=== PATIENT | male | born 1975 ===

== ENCOUNTER 2016-07-09 22:06 | Emergency (ER) | payer MEDICAID ==
[2016-07-09 22:06] VITALS: BMI 29.8
[2016-07-09 22:13] VITALS: BP 153/87; PULSE 99; RESP 16; TEMP 98.1; O2SAT 100
[2016-07-09] MEDS ORDERED: Iohexol 240 (50 ml) PO ONE (23:06)
--- NOTE | 2016-07-09 23:06 | ED PDOC ---
HPI: Abdomen Time Seen by Provider: 07/09/16 22:31 Chief Complaint (Nursing): Abdominal Pain Chief Complaint (Provider): Abdominal pain History Per: Patient Additional Complaint(s): 40 year old male with a pertinent medical history of diabetes (IDDM) and hypertension presents to the ED with complaints of left side scrotal pain which has persisted for the past 3 weeks. He had recently been diagnosed with cellulitis of the left side of his scrotum (about a month ago) and his urologist performed an IND procedure to drain the fluid. The wound is still open and draining fluid today, but the pain has recently worsened. There's also associated redness in his scrotal area. He denies having swelling, a fever, abdominal pain, vomiting, and nausea. PMD: [place] MD Past Medical History Vital Signs: Last Vital Signs Temp 98.1 F 07/09/16 22:10 Pulse 99 H 07/09/16 22:10 Resp 16 07/09/16 22:10 BP 153/87 H 07/09/16 22:10 Pulse Ox 100 07/10/16 03:50 - Medical History PMH: Bronchitis, Diabetes (IDDM), HTN, Pneumonia, Pulmonary Embolism Denies: HIV, Paranoia, Chronic Kidney Disease - Surgical History Surgical History: Appendectomy, Hernia Repair - Family History Family History: States: Unknown Family Hx - Immunization History Hx Tetanus Toxoid Vaccination: Yes Hx Influenza Vaccination: No Hx Pneumococcal Vaccination: Yes - Home Medications Home Medications: Ambulatory Orders Medication Instructions Recorded MetFORMIN [glucoPHAGE] 1,000 mg PO BID #0 tab 10/03/15 Lisinopril [Zestril] 20 mg PO DAILY 06/12/16 Ibuprofen [Motrin Tab] 400 mg PO Q6 PRN #0 tab 06/17/16 Ketoconazole 2% Cr [Nizoral] 1 applic TOP BID #1 tube 06/17/16 Pioglitazone [Actos] 30 mg PO DAILY #30 tab 06/17/16 SITagliptin [Januvia] 100 mg PO DAILY #30 tab 06/17/16 traMADol [Ultram] 50 mg PO Q8 PRN #12 tab 06/30/16 Dicyclomine [Bentyl] 10 mg PO QID #10 cap 07/10/16 - Allergies Allergies/Adverse Reactions: Allergies Allergy/AdvReac Type Severity Reaction Status Date / Time metoclopramide HCl Allergy RASH Verified 05/28/16 21:28 [From Reglan] ondansetron HCl Allergy RASH Verified 05/28/16 21:28 [From Zofran (as hydrochloride)] onion AdvReac VOMITING Verified 06/12/16 15:24 - Laboratory Results Result Diagrams: 07/09/16 23:30 07/09/16 23:30 - ECG O2 Sat by Pulse Oximetry: 100 Medical Decision Making Medical Decision Making: labs, urine, CT abd/pelvis with IV contrast, IV fluids, IV morphine Case was discussed with Dr. Lake, patient's PMD, who recommends if ED work up normal patient to be discharged to follow up with urology as outpatient. EXAM: CT Abdomen and Pelvis With Intravenous Contrast. CLINICAL HISTORY: 41 years old, male; Pain; Abdominal pain; Localized; Left; Prior surgery; Surgery date: 6+ months; Surgery type: Appendectomy; Additional info: Left lower abd pain, left scrotal pain TECHNIQUE: Axial computed tomography images of the abdomen and pelvis with intravenous contrast. This CT exam was performed using one or more of the following dose reduction techniques : automated exposure control, adjustment of the mA and/or kV according to patient size, and/ or use of iterative reconstruction technique. Coronal and sagittal reformatted images were created and reviewed. CONTRAST: 95 mL of [id number] administered intravenously. EXAM DATE/TIME: 06/29/2016 11:51 PM COMPARISON: CT - PELVIS W/IV CONTRAST ONLY 06/12/2016 5:56:28 AM FINDINGS: There is bibasilar atelectasis. The liver is normal. The spleen is normal. The pancreas is normal. No gallstones. No hydronephrosis or perinephric stranding. The bowel appears normal. Status post appendectomy. There is a 2.2 centimeter fluid collection in the anterior inferior right pelvis unchanged. Again seen is abnormal soft tissue density in the left perianal region. There has been placement of a hyperdense, somewhat tubular structure since the prior study of uncertain etiology. Recommend correlation with history of recent procedure. There is no drainable fluid collection. The two main diagnostic possibilities would be infectious/inflammatory etiology versus neoplastic etiology. Again seen are 2 rounded hyperdensities along the left lateral aspect of the penis unchanged. IMPRESSION: Abnormal soft tissue density in the left perianal region similar to prior although now containing irregular hyperdense structure, presumably the patient has undergone interventional procedure in the interim.The two main diagnostic possibilities would be infectious/inflammatory etiology versus neoplastic etiology. Clinical correlation with regard to signs/symptoms of infectious process as well as followup is recommended On re-eval, patient resting comfortably; states pain improved. Patient was educated on findings, discharged with instructions to follow up with Dr. Manley at scheduled appointment tomorrow. Patient advised to continue Clindamycin. Rx Tramadol given. Return to ED for worsening/concerning symptoms. US IMPRESSION: 1. No sonographic evidence of testicular torsion. 2. Incidental/non-acute findings are described above Disposition - Clinical Impression Clinical Impression: Abdominal discomfort, Cellulitis of scrotum - Disposition Condition: GOOD Prescriptions: Dicyclomine [Bentyl] 10 mg PO QID #10 cap Instructions: Cellulitis (ED), Acute Diarrhea (ED), Acute Abdominal Pain (ED)
[2016-07-09] MEDS ORDERED: DiphenhydrAMINE 50 mg/ml Inj IVP STA (23:09)
[2016-07-10 00:06] LABS: BASO % 0.5 % (0.0-2.0); EOS # 0.2 K/uL (0.0-0.7); EOS % 3.7 % (0.0-4.0); HEMATOCRIT 39.8 % (35.0-51.0); LYMPH # 1.4 K/uL (1.0-4.3); LYMPH % 20.9 % (20.0-40.0); MEAN CELL VOLUME 91.1 fl (80.0-94.0); MEAN CORPUSCULAR HEMOGLOBIN 31.4 pg (27.0-31.0); MEAN CORPUSCULAR HGB CONC 34.4 g/dL (33.0-37.0); MEAN PLATELET VOLUME 8.2 fl (7.2-11.7); MONO # 0.8 K/uL (0.0-0.8); MONO % 11.7 % (0.0-10.0); NEUT # 4.2 K/uL (1.8-7.0); NEUT % 63.2 % (50.0-75.0); NRBC % 0.1 % (0.0-0.0); RED CELL DISTRIBUTION WIDTH 12.6 % (11.5-14.5); WHITE BLOOD COUNT 6.6 K/uL (4.8-10.8)
[2016-07-10 00:24] LABS: ALB/GLOB RATIO 1.2 (1.0-2.1); ALKALINE PHOSPHATASE 110 U/L (38-126); ALT/SGPT 34 U/L (21-72); AST/SGOT 22 U/L (17-59); BILIRUBIN,TOTAL 0.3 mg/dl (0.2-1.3); BLOOD UREA NITROGEN 16 mg/dl (9-20); CALCIUM 9.4 mg/dL (8.4-10.2); CARBON DIOXIDE 22 mmol/L (22-30); CHLORIDE 104 mmol/L (98-107); GFR AFRICAN-AMERICAN > 60; GLUCOSE,RANDOM 236 mg/dL (75-110); LIPASE 49 U/L (23-300); SODIUM 136 mmol/l (132-148); TOTAL PROTEIN 7.6 G/DL (6.3-8.2)
[2016-07-10 00:54] LABS: RBC URINE 3 /hpf (0-3); URINE BACTERIA RARE (<OCC); URINE BILIRUBIN NEGATIVE (NEGATIVE); URINE BLOOD NEGATIVE (NEGATIVE); URINE COLOR YELLOW (YELLOW); URINE GLUCOSE (UA) >=500 mg/dL (Normal); URINE KETONE TRACE mg/dL (NEGATIVE); URINE LEUKOCYTE ESTERASE NEG Leu/uL (Negative); URINE PROTEIN NEGATIVE (NEGATIVE); URINE UROBILINOGEN 0.2-1.0 mg/dL (0.2-1.0); WBC URINE < 1 /hpf (0-5)
--- NOTE | 2016-07-10 02:07 | US ---
EXAM: US Scrotum. CLINICAL HISTORY: 41 years old, male; Pain; Scrotum pain; Prior surgery; Surgery date: 6+ months; Surgery type: As per pt lt testile surgery long time ago; Additional info: Left testicular pain and swelling TECHNIQUE: Real-time ultrasound of the scrotum with color Doppler and image documentation. COMPARISON: No relevant prior studies available. FINDINGS: Limitations: Patient compliance as per technologist. Right testicle: No mass. No torsion. Left testicle: No mass. No torsion. Epididymides: Unremarkable as visualized. Scrotum: Possible small LEFT varicocele. IMPRESSION: 1. No sonographic evidence of testicular torsion. 2. Incidental/non-acute findings are described above.
--- NOTE | 2016-07-10 08:21 | RAD ---
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 No new focal alveolar infiltrate is seen. Trachea is midline. PLEURA: No pneumothorax or pleural fluid seen. CARDIOVASCULAR: Normal. OSSEOUS STRUCTURES: No significant abnormalities. VISUALIZED UPPER ABDOMEN: Normal. OTHER FINDINGS: None. IMPRESSION: No focal infiltrate. No vascular congestion or pneumothorax.
--- NOTE | 2016-07-11 09:38 | CARD ---
APPROVED REPORT EKG Measurement Heart [id number] <Conclusion> Normal sinus rhythm Normal ECG
== END 2016-07-10 06:32 | disposition home or self-care (01) ==
LOC: H.ER 22:06
DX: R10.9 Unspecified abdominal pain (principal); N49.2 Inflammatory disorders of scrotum; I10 Essential (primary) hypertension; E11.9 Type 2 diabetes mellitus without complications

== ENCOUNTER 2016-10-11 01:00 | Emergency (ER) | payer MEDICAID ==
[2016-10-11 01:00] VITALS: BMI 29.8
[2016-10-11 01:53] VITALS: BP 155/87; PULSE 111; RESP 16; TEMP 98.1; O2SAT 98
[2016-10-11] MEDS ORDERED: Sodium Chloride 0.9% 1,000 ML IV STA (02:12)
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
[2016-10-11 02:53] LABS: BASO # 0.1 K/uL (0.0-0.2); BASO % 0.9 % (0.0-2.0); EOS # 0.4 K/uL (0.0-0.7); EOS % 6.1 % (0.0-4.0); HEMATOCRIT 43.2 % (35.0-51.0); LYMPH # 1.7 K/uL (1.0-4.3); LYMPH % 24.7 % (20.0-40.0); MEAN CELL VOLUME 91.3 fl (80.0-94.0); MEAN CORPUSCULAR HEMOGLOBIN 30.9 pg (27.0-31.0); MEAN CORPUSCULAR HGB CONC 33.8 g/dL (33.0-37.0); MEAN PLATELET VOLUME 7.2 fl (7.2-11.7); MONO # 1.1 K/uL (0.0-0.8); NEUT # 3.6 K/uL (1.8-7.0); NEUT % 52.3 % (50.0-75.0); RED CELL DISTRIBUTION WIDTH 12.7 % (11.5-14.5); WHITE BLOOD COUNT 6.8 K/uL (4.8-10.8)
[2016-10-11 03:07] LABS: ALB/GLOB RATIO 1.3 (1.0-2.1); ALKALINE PHOSPHATASE 114 U/L (38-126); ALT/SGPT 33 U/L (21-72); AST/SGOT 22 U/L (17-59); BILIRUBIN,TOTAL 0.2 mg/dl (0.2-1.3); BLOOD UREA NITROGEN 10 mg/dl (9-20); CALCIUM 9.7 mg/dL (8.4-10.2); CARBON DIOXIDE 25 mmol/L (22-30); CHLORIDE 101 mmol/L (98-107); GFR AFRICAN-AMERICAN > 60; GLUCOSE,RANDOM 337 mg/dL (75-110); LIPASE 29 U/L (23-300); POTASSIUM 3.9 MMOL/L (3.6-5.0); SODIUM 140 mmol/l (132-148); TOTAL PROTEIN 7.7 G/DL (6.3-8.2)
[2016-10-11 03:21] LABS: RBC URINE 4 /hpf (0-3); URINE BILIRUBIN NEGATIVE (NEGATIVE); URINE BLOOD NEGATIVE (NEGATIVE); URINE COLOR YELLOW (YELLOW); URINE GLUCOSE (UA) >=500 mg/dL (Normal); URINE KETONE NEGATIVE (NEGATIVE); URINE LEUKOCYTE ESTERASE NEG Leu/uL (Negative); URINE PROTEIN NEGATIVE (NEGATIVE); URINE UROBILINOGEN 0.2-1.0 mg/dL (0.2-1.0); WBC URINE < 1 /hpf (0-5)
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
== END 2016-10-11 05:00 | disposition home or self-care (01) ==
LOC: H.ER 01:00
DX: K52.9 Noninfective gastroenteritis and colitis, unspecified (principal); M54.9 Dorsalgia, unspecified; R11.2 Nausea with vomiting, unspecified; R19.7 Diarrhea, unspecified

== ENCOUNTER 2017-04-02 22:42 | Emergency (ER) | payer MEDICAID ==
[2017-04-02 22:43] VITALS: BMI 29.8
[2017-04-02 22:49] VITALS: RESP 16; TEMP 98.1
[2017-04-02] MEDS ORDERED: Iohexol 240 (50 ml) PO ONE (23:05)
[2017-04-02] MEDS ORDERED: Sodium Chloride 0.9% 1,000 ML IV STA (23:06)
[2017-04-02] MEDS ORDERED: Iohexol 240 (50 ml) ONE (23:38)
--- NOTE | 2017-04-02 23:38 | ED PDOC ---
HPI: Abdomen Time Seen by Provider: 04/02/17 22:50 Chief Complaint (Nursing): Abdominal Pain Chief Complaint (Provider): Abdominal Pain History Per: Patient History/Exam Limitations: no limitations Onset/Duration Of Symptoms: Days (x6) Current Symptoms Are (Timing): Still Present Location Of Pain/Discomfort: Diffuse Associated Symptoms: Nausea, Vomiting, Diarrhea, Constipation. denies: Fever Additional Complaint(s): 41 year old male presents to ED with complaints of diffuse abdominal pain x6 days and has a past medical history of HTN, DM (type II), and scrotal abscess. ( +) left flank pain, nausea, vomiting, and alternating diarrhea/constipation. Notes diarrhea is watery, brown, and non-bloody and emesis is non-bloody and non -bilious. Denies vomiting today but notes presence of nausea. (-) fever. PCP: [facility] Past Medical History Reviewed: Historical Data, Nursing Documentation, Vital Signs Vital Signs: Last Vital Signs Temp 98.1 F 04/02/17 22:46 Pulse 84 04/03/17 03:05 Resp 16 04/03/17 03:05 BP 134/86 04/03/17 03:05 Pulse Ox 96 04/03/17 03:05 - Medical History PMH: Bronchitis, Diabetes (IDDM), HTN, Pneumonia, Pulmonary Embolism Denies: HIV, Chronic Kidney Disease - Surgical History Surgical History: Appendectomy, Hernia Repair - Family History Family History: States: Unknown Family Hx - Immunization History Hx Tetanus Toxoid Vaccination: Yes Hx Influenza Vaccination: Yes Hx Pneumococcal Vaccination: Yes - Home Medications Home Medications: Ambulatory Orders Medication Instructions Recorded MetFORMIN [glucoPHAGE] 1,000 mg PO BID #0 tab 10/03/15 Lisinopril [Zestril] 20 mg PO DAILY 06/12/16 Ibuprofen [Motrin Tab] 400 mg PO Q6 PRN #0 tab 06/17/16 Ketoconazole 2% Cr [Nizoral] 1 applic TOP BID #1 tube 06/17/16 SITagliptin [Januvia] 100 mg PO DAILY #30 tab 06/17/16 Dicyclomine [Bentyl] 10 mg PO QID #10 cap 07/10/16 Atropine/Diphenoxylate [Lonox 1 tab PO QID PRN #8 tab 07/17/16 0.025 MG-2.5 MG] Cyclobenzaprine [Cyclobenzaprine 10 mg PO BID PRN #10 tab 10/11/16 HCl] Dicyclomine [Bentyl] 20 mg PO TID #21 tab 10/11/16 Famotidine [Pepcid] 20 mg PO BID #20 tab 10/11/16 Naproxen [Naprosyn] 500 mg PO Q12 PRN #20 tablet 10/11/16 Dicyclomine [Dicyclomine HCl] 10 mg PO QID #30 cap 04/03/17 DiphenhydrAMINE [Benadryl] 25 mg PO Q8 #20 cap 04/03/17 Promethazine [Phenergan] 12.5 mg PO Q8 #15 tab 04/03/17 - Allergies Allergies/Adverse Reactions: Allergies Allergy/AdvReac Type Severity Reaction Status Date / Time metoclopramide HCl Allergy RASH Verified 04/02/17 22:46 [From Reglan] ondansetron HCl Allergy RASH Verified 04/02/17 22:46 [From Zofran (as hydrochloride)] onion AdvReac VOMITING Verified 04/02/17 22:46 Review of Systems ROS Statement: Except As Marked, All Systems Reviewed And Found Negative Constitutional: Negative for: Fever Gastrointestinal: Positive for: Nausea, Vomiting, Abdominal Pain (diffuse and left flank), Diarrhea, Constipation Physical Exam - Reviewed Nursing Documentation Reviewed: Yes Vital Signs Reviewed: Yes - Physical Exam Appears: Positive for: Non-toxic, No Acute Distress (disheveled) Skin: Positive for: Normal Color, Warm, Dry Eye Exam: Negative for: Normal appearance (cateract in left eye) Respiratory: Positive for: Normal Breath Sounds. Negative for: Respiratory Distress Gastrointestinal/Abdominal: Positive for: Soft, Tenderness (diffuse, greater on right side of abdomen than left. (+)Left flank tenderness ), Other (multiple surgical scars) Back: Positive for: Normal Inspection Extremity: Positive for: Normal ROM. Negative for: Deformity Neurologic/Psych: Positive for: Alert, Oriented - Laboratory Results Result Diagrams: 04/02/17 23:38 04/02/17 23:38 - ECG O2 Sat by Pulse Oximetry: 99 (RA) Pulse Ox Interpretation: Normal Medical Decision Making Medical Decision Makin Initial impression: colitis v diverticulitis v pyelonephritis v obstruction Initial plan: * CTA A/P * Labs * Lipase * NS IV * Iohexol 50mL PO * Phenergan Inj 125mg IV * BCx * UCx * UA * Re-eval 0158 CT FINDINGS Lower thorax: No acute findings. ABDOMEN: Liver: Unremarkable. No mass. Gallbladder and bile ducts: No calcified stones. No ductal dilation. Pancreas: No ductal dilation. No mass. Spleen: No splenomegaly. Adrenals: No mass. Kidneys and ureters: No mass. No hydronephrosis. Stomach and bowel: No definite mural thickening. No obstruction. Appendix: Appendectomy. PELVIS: Bladder: Unremarkable. Reproductive: Unremarkable as visualized. ABDOMEN and PELVIS: Intraperitoneal space: Small fluid collection within RIGHT anterior pelvis about region, stable. No free air. Bones/joints: No acute fracture. Soft tissues: Unremarkable. Vasculature: Minimal atherosclerotic disease. No aneurysm. Lymph nodes: No pathologically enlarged lymph nodes. IMPRESSION: 1. No definite acute intraabdominal abnormality. 2. Incidental/non-acute findings are described above. 2am pt. feeling better, tolerating po. told to f/u w/ angel and gi as needed. return precautions discussed. Scribe Attestation: Documented by Antonette Gallegos acting as a scribe for Brooks Ocasio MD. Scribe Attestation: All medical record entries made by the Scribe were at my direction and personally dictated by me. I have reviewed the chart and agree that the record accurately reflects my personal performance of the history, physical exam, medical decision making, and the department course for this patient. I have also personally directed, reviewed, and agree with the discharge instructions and disposition. Disposition - Clinical Impression Clinical Impression: Abdominal pain - Disposition Referrals: [place] MD [Family Provider] - Felipe Chu MD, PhD [Staff Provider] - Disposition Time: 02:30 Condition: STABLE Prescriptions: Dicyclomine [Dicyclomine HCl] 10 mg PO QID #30 cap DiphenhydrAMINE [Benadryl] 25 mg PO Q8 #20 cap Promethazine [Phenergan] 12.5 mg PO Q8 #15 tab Instructions: Acute Abdominal Pain (DC) Forms: [employer] ([employer])
[2017-04-02 23:41] LABS: BASO % 0.6 % (0.0-2.0); EOS # 0.4 K/uL (0.0-0.7); HEMATOCRIT 43.3 % (35.0-51.0); LYMPH # 1.4 K/uL (1.0-4.3); LYMPH % 19.1 % (20.0-40.0); MEAN CELL VOLUME 93.7 fl (80.0-94.0); MEAN CORPUSCULAR HEMOGLOBIN 31.9 pg (27.0-31.0); MEAN CORPUSCULAR HGB CONC 34.1 g/dL (33.0-37.0); MEAN PLATELET VOLUME 7.6 fl (7.2-11.7); MONO # 0.9 K/uL (0.0-0.8); MONO % 11.9 % (0.0-10.0); NEUT # 4.8 K/uL (1.8-7.0); NEUT % 63.4 % (50.0-75.0); RED CELL DISTRIBUTION WIDTH 12.2 % (11.5-14.5); WHITE BLOOD COUNT 7.6 K/uL (4.8-10.8)
[2017-04-02 23:53] LABS: ALB/GLOB RATIO 1.3 (1.0-2.1); ALKALINE PHOSPHATASE 103 U/L (38-126); ALT/SGPT 44 U/L (21-72); AST/SGOT 24 U/L (17-59); BILIRUBIN,TOTAL 0.4 mg/dl (0.2-1.3); BLOOD UREA NITROGEN 12 mg/dl (9-20); CALCIUM 9.1 mg/dL (8.4-10.2); CARBON DIOXIDE 23 mmol/L (22-30); CHLORIDE 102 mmol/L (98-107); GFR AFRICAN-AMERICAN > 60; GLUCOSE,RANDOM 369 mg/dL (75-110); LIPASE 54 U/L (23-300); SODIUM 138 mmol/l (132-148); TOTAL PROTEIN 7.5 G/DL (6.3-8.2)
[2017-04-03 00:38] LABS: RBC URINE 1 /hpf (0-3); URINE BACTERIA RARE (<OCC); URINE BILIRUBIN NEGATIVE (NEGATIVE); URINE BLOOD NEGATIVE (NEGATIVE); URINE COLOR STRAW (YELLOW); URINE GLUCOSE (UA) >=500 mg/dL (Normal); URINE KETONE NEGATIVE (NEGATIVE); URINE LEUKOCYTE ESTERASE NEG Leu/uL (Negative); URINE PROTEIN 30 mg/dL (NEGATIVE); URINE UROBILINOGEN 0.2-1.0 mg/dL (0.2-1.0)
[2017-04-03] MEDS ORDERED: Iohexol 300 100 ML IJ ONE (01:11)
--- NOTE | 2017-04-03 01:58 | CT ---
EXAM: CT Abdomen and Pelvis With Intravenous Contrast CLINICAL HISTORY: 41 years old, male; Pain; Abdominal pain; Generalized; Prior surgery; Surgery date: 6+ months; Surgery type: Appendectomy. Hernia repair; Additional info: Diffuse abd pain and l flank pain, vomiting TECHNIQUE: Axial computed tomography images of the abdomen and pelvis with intravenous contrast. All CT scans at this facility use one or more dose reduction techniques, viz.: automated exposure control; ma/kV adjustment per patient size (including targeted exams where dose is matched to indication; i.e. head); or iterative reconstruction technique. Coronal and sagittal reformatted images were created and reviewed. CONTRAST: 95 mL of [id number] administered intravenously. COMPARISON: CT - ABD PELVIS IV CONTRAST ONLY 2016-06-30 01:35 FINDINGS: Lower thorax: No acute findings. ABDOMEN: Liver: Unremarkable. No mass. Gallbladder and bile ducts: No calcified stones. No ductal dilation. Pancreas: No ductal dilation. No mass. Spleen: No splenomegaly. Adrenals: No mass. Kidneys and ureters: No mass. No hydronephrosis. Stomach and bowel: No definite mural thickening. No obstruction. Appendix: Appendectomy. PELVIS: Bladder: Unremarkable. Reproductive: Unremarkable as visualized. ABDOMEN and PELVIS: Intraperitoneal space: Small fluid collection within RIGHT anterior pelvis about region, stable. No free air. Bones/joints: No acute fracture. Soft tissues: Unremarkable. Vasculature: Minimal atherosclerotic disease. No aneurysm. Lymph nodes: No pathologically enlarged lymph nodes. IMPRESSION: 1. No definite acute intraabdominal abnormality. 2. Incidental/non-acute findings are described above.
[2017-04-03 03:23] VITALS: BP 134/86; PULSE 84
[2017-04-03 07:01] VITALS: O2SAT 99
== END 2017-04-03 03:24 | disposition home or self-care (01) ==
LOC: H.ER 22:42
DX: R10.9 Unspecified abdominal pain (principal); E11.9 Type 2 diabetes mellitus without complications; I10 Essential (primary) hypertension; K52.9 Noninfective gastroenteritis and colitis, unspecified; K57.92 Diverticulitis of intestine, part unspecified, without perforation or abscess without bleeding; N12 Tubulo-interstitial nephritis, not specified as acute or chronic; Z79.4 Long term (current) use of insulin; Z86.711 Personal history of pulmonary embolism
CPT/HCPCS: 74177; 80053; 81003; 82948; 83690; 85025; 87040; 87086; 96374; 99283; J2550; J7040; Q9966; Q9967

== ENCOUNTER 2017-05-26 22:27 | Emergency (ER) | payer MEDICAID ==
[2017-05-26 22:27] VITALS: BMI 29.8
--- NOTE | 2017-05-27 01:58 | ED PDOC ---
HPI: Abdomen Time Seen by Provider: 05/27/17 01:18 Chief Complaint (Nursing): Abdominal Pain Chief Complaint (Provider): Abdominal Pain/Vomiting History Per: Patient History/Exam Limitations: no limitations Onset/Duration Of Symptoms: Days (x4) Outside of [place] travel?: No Current Symptoms Are (Timing): Still Present Additional Complaint(s): Darell Downs is a 41 year old male with a history of diabetes and hypertension that presents to the ED with a chief complaint of coffee ground emesis, productive cough associated with dark colored phlegm, epigastric abdominal pain , and watery, non-bloody, non-black diarrhea that he has been experiencing for the past four days. Patient reports that he was "on a train from [place] to [place]" for the past four days, and that he placed his diabetes and hypertension medication in a bag that he could not access during the trip. Patient additionally reports a knot-like feeling within his chest. After reviewing patient's past history, he has presented to ED multiple times for similar complaints. Of Note: Patient has a history of a bleeding ulcer, as well as a blood clot in his lungs. Denies IVC filter. PMD: Dr. Lake Past Medical History Reviewed: Historical Data, Nursing Documentation, Vital Signs Vital Signs: Last Vital Signs Temp 98.7 F 05/26/17 22:48 Pulse 98 H 05/26/17 22:48 Resp 18 05/26/17 22:48 BP 166/90 H 05/26/17 22:48 Pulse Ox 99 05/27/17 05:34 - Medical History PMH: Bronchitis, Diabetes (IDDM), HTN, Pneumonia, Pulmonary Embolism Denies: HIV, Chronic Kidney Disease - Surgical History Surgical History: Appendectomy, Hernia Repair - Family History Family History: States: Unknown Family Hx - Social History Current smoker - smoking cessation education provided: Yes Alcohol: None Drugs: Denies - Immunization History Hx Tetanus Toxoid Vaccination: Yes Hx Influenza Vaccination: Yes Hx Pneumococcal Vaccination: Yes - Home Medications Home Medications: Ambulatory Orders Medication Instructions Recorded Lisinopril [Zestril] 20 mg PO DAILY 06/12/16 Ibuprofen [Motrin Tab] 400 mg PO Q6 PRN #0 tab 06/17/16 Ketoconazole 2% Cr [Nizoral] 1 applic TOP BID #1 tube 06/17/16 Dicyclomine [Bentyl] 10 mg PO QID #10 cap 07/10/16 Atropine/Diphenoxylate [Lonox 1 tab PO QID PRN #8 tab 07/17/16 0.025 MG-2.5 MG] Cyclobenzaprine [Cyclobenzaprine 10 mg PO BID PRN #10 tab 10/11/16 HCl] Dicyclomine [Bentyl] 20 mg PO TID #21 tab 10/11/16 Famotidine [Pepcid] 20 mg PO BID #20 tab 10/11/16 Naproxen [Naprosyn] 500 mg PO Q12 PRN #20 tablet 10/11/16 DiphenhydrAMINE [Benadryl] 25 mg PO Q8 #20 cap 04/03/17 Promethazine [Phenergan] 12.5 mg PO Q8 #15 tab 04/03/17 Dicyclomine [Dicyclomine HCl] 10 mg PO QID #30 cap 05/27/17 MetFORMIN [glucoPHAGE] 1,000 mg PO BID #60 tab 05/27/17 Ondansetron ODT [Zofran ODT] 4 mg PO Q8 PRN #12 odt 05/27/17 SITagliptin [Januvia] 100 mg PO DAILY #30 tab 05/27/17 - Allergies Allergies/Adverse Reactions: Allergies Allergy/AdvReac Type Severity Reaction Status Date / Time metoclopramide HCl Allergy RASH Verified 04/02/17 22:46 [From Reglan] ondansetron HCl Allergy RASH Verified 04/02/17 22:46 [From Zofran (as hydrochloride)] onion AdvReac VOMITING Verified 04/02/17 22:46 Review of Systems ROS Statement: Except As Marked, All Systems Reviewed And Found Negative Constitutional: Negative for: Fever Cardiovascular: Positive for: Chest Pain ("knot-like feeling" in his chest) Gastrointestinal: Positive for: Vomiting (coffee-ground emesis), Abdominal Pain (epigastric), Diarrhea (watery, non-bloody, non-black) Physical Exam - Reviewed Nursing Documentation Reviewed: Yes Vital Signs Reviewed: Yes - Physical Exam Appears: Positive for: Non-toxic, No Acute Distress (Patient is disheveled) Head Exam: Positive for: ATRAUMATIC, NORMOCEPHALIC Skin: Positive for: Normal Color, Warm Eye Exam: Positive for: EOMI (only right eye), PERRL (only right eye). 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 Negative for: Murmur Respiratory: Positive for: Normal Breath Sounds. Negative for: Wheezing Gastrointestinal/Abdominal: Positive for: Tenderness (Diffuse TTP), Other (Scar present on lower abdomen from previous surgery). Negative for: Normal Exam, Distended, Guarding Back: Positive for: Normal Inspection Extremity: Positive for: Normal ROM. Negative for: Deformity Neurologic/Psych: Positive for: Alert, Oriented. Negative for: Motor/Sensory Deficits - Laboratory Results Result Diagrams: 05/27/17 02:10 05/27/17 02:10 - ECG O2 Sat by Pulse Oximetry: 99 (RA) Pulse Ox Interpretation: Normal - Radiology X-Ray: Interpreted by Me Medical Decision Making Medical Decision Making: Impression: Abdominal Pain, Coffee Ground Emesis, and Chest Pain, ddx include ACS (for chest pain) and Upper GI bleed vs. Peptic Ulcer Disease vs. Other Abdominal pathologies (for abdominal pain) Plan: * CT Abd/Pelvis with PO and IV Contrast * Chest X-Ray * EKG * CMP * CBC * PTT * PT * Lipase * Type and Screen * Alcohol Serum * Accucheck * Reevaluation CT Abdomen and Pelvis with PO and IV Contrast FINDINGS: Lower thorax: No acute findings. ABDOMEN: Liver: Unremarkable. No mass. Gallbladder and bile ducts: The gallbladder is contracted but otherwise normal. No calcified stones. No ductal dilation. Pancreas: Unremarkable. No mass. No ductal dilation. Spleen: Unremarkable. No splenomegaly. Adrenals: Unremarkable. No mass. Kidneys and ureters: Unremarkable. No solid mass. No hydronephrosis. Stomach and bowel: Unremarkable. No obstruction. No mucosal thickening.There is no wall thickening or pericolonic stranding to suggest colitis. Appendix: Not visualized. History of appendectomy. PELVIS: Bladder: Unremarkable. No mass. Reproductive: Unremarkable as visualized. ABDOMEN and PELVIS: Intraperitoneal space: Unremarkable. No free air. No significant fluid collection. Bones/joints: No acute fracture. No dislocation. Soft tissues: Unremarkable. Vasculature: The vasculature demonstrates diffuse mild atherosclerotic calcification. No abdominal aortic aneurysm. Lymph nodes: Unremarkable. No enlarged lymph nodes. IMPRESSION: No acute intra-abdominal or pelvic abnormality Chest X-Ray Interpreted by me, no acute findings. 5:23 Patient has been sleeping throughout ED visit. He has not vomited in ED and has not been given pain medication. Labs unremarkable with the exception of mild hyperglycemia of 275 mg/dL, which is to be expected as patient has a history of diabetes. 5:30 EKG shows NSR at 70 BPM, normal QRS, and no ST changes. Patient given Rx for Metformin, Zofran, Dicyclomine, and Januvia. Advised to follow up with PMD in 2 days. Patient is stable for discharge home. Scribe Attestation: Documented by Gena Arzate, acting as a scribe for Jeffrey Saha MD. Provider Scribe Attestation: All medical record entries made by the Scribe were at my direction and personally dictated by me. I have reviewed the chart and agree that the record accurately reflects my personal performance of the history, physical exam, medical decision making, and the department course for this patient. I have also personally directed, reviewed, and agree with the discharge instructions and disposition. Disposition - Clinical Impression Clinical Impression: Vomiting and diarrhea, Abdominal pain, Cough, Chest pain - Patient ED Disposition Is Patient to be Admitted: No Doctor Will See Patient In The: Office Counseled Patient/Family Regarding: Studies Performed, Diagnosis, Need For Followup - Disposition Referrals: Michoacano Lake MD [Staff Provider] - Disposition: Routine/Home Disposition Time: 05:30 Condition: GOOD Additional Instructions: Take your medications as instructed. Follow up with your PCP in 2 days. Prescriptions: Dicyclomine [Dicyclomine HCl] 10 mg PO QID #30 cap MetFORMIN [glucoPHAGE] 1,000 mg PO BID #60 tab Ondansetron ODT [Zofran ODT] 4 mg PO Q8 PRN #12 odt PRN Reason: Nausea/Vomiting SITagliptin [Januvia] 100 mg PO DAILY #30 tab Instructions: Chest Pain (ED), Abdominal Pain (ED), Diabetic Hyperglycemia (ED)
[2017-05-27] MEDS ORDERED: Iohexol 240 (50 ml) PO ONE (02:25)
[2017-05-27 02:26] LABS: BASO % 0.6 % (0.0-2.0); EOS # 0.4 K/uL (0.0-0.7); EOS % 5.5 % (0.0-4.0); HEMOGLOBIN 14.1 g/dL (12.0-18.0); LYMPH # 1.8 K/uL (1.0-4.3); LYMPH % 26.1 % (20.0-40.0); MEAN CELL VOLUME 91.3 fl (80.0-94.0); MEAN CORPUSCULAR HEMOGLOBIN 32.5 pg (27.0-31.0); MEAN CORPUSCULAR HGB CONC 35.5 g/dL (33.0-37.0); MEAN PLATELET VOLUME 7.3 fl (7.2-11.7); MONO % 14.2 % (0.0-10.0); NEUT # 3.7 K/uL (1.8-7.0); NEUT % 53.6 % (50.0-75.0); NRBC % 0.1 % (0.0-0.0); RBC 4.36 Mil/uL (4.40-5.90); RED CELL DISTRIBUTION WIDTH 12.2 % (11.5-14.5); WHITE BLOOD COUNT 6.9 K/uL (4.8-10.8)
[2017-05-27] MEDS ORDERED: Iohexol 240 (50 ml) ONE (02:38)
[2017-05-27 02:45] LABS: ALB/GLOB RATIO 1.1 (1.0-2.1); ALT/SGPT 38 U/L (21-72); AST/SGOT 25 U/L (17-59); BLOOD UREA NITROGEN 7 mg/dl (9-20); CALCIUM 9.6 mg/dL (8.4-10.2); GFR AFRICAN-AMERICAN > 60; GFR NON-AFRICAN AMERICAN > 60; LIPASE 32 U/L (23-300)
[2017-05-27 02:49] LABS: PROTHROMBIN TIME 10.5 Seconds (9.8-13.1)
[2017-05-27] MEDS ORDERED: Promethazine 6.25 MG/5 ML CUP ONE (02:52)
[2017-05-27 03:35] LABS: BARBITURATES, UR NEGATIVE (NEGATIVE); BENZODIAZEPINES, UR NEGATIVE (NEGATIVE); OPIATES, UR NEGATIVE (NEGATIVE); PHENCYCLIDINE, UR NEGATIVE (NEGATIVE)
[2017-05-27] MEDS ORDERED: Sodium Chloride 0.9% 50 ML IV ONE (03:50)
[2017-05-27] MEDS ORDERED: Iohexol 300 100 ML IJ ONE (03:50)
--- NOTE | 2017-05-27 04:36 | CT ---
EXAM: CT Abdomen and Pelvis With Intravenous Contrast CLINICAL HISTORY: 41 years old, male; Pain; Abdominal pain; Generalized; Prior surgery; Surgery date: 6+ months; Surgery type: Appendectomy rt inguinal hernia repair; Additional info: Abdominal pain vomiting TECHNIQUE: Axial computed tomography images of the abdomen and pelvis with intravenous contrast. All CT scans at this facility use one or more dose reduction techniques, viz.: automated exposure control; ma/kV adjustment per patient size (including targeted exams where dose is matched to indication; i.e. head); or iterative reconstruction technique. Coronal and sagittal reformatted images were created and reviewed. CONTRAST: 95 mL of [id number] administered intravenously. COMPARISON: CT - ABD PELVIS PO IV CONTRAST 2017-04-03 01:28 FINDINGS: Lower thorax: No acute findings. ABDOMEN: Liver: Unremarkable. No mass. Gallbladder and bile ducts: The gallbladder is contracted but otherwise normal. No calcified stones. No ductal dilation. Pancreas: Unremarkable. No mass. No ductal dilation. Spleen: Unremarkable. No splenomegaly. Adrenals: Unremarkable. No mass. Kidneys and ureters: Unremarkable. No solid mass. No hydronephrosis. Stomach and bowel: Unremarkable. No obstruction. No mucosal thickening.There is no wall thickening or pericolonic stranding to suggest colitis. Appendix: Not visualized. History of appendectomy. PELVIS: Bladder: Unremarkable. No mass. Reproductive: Unremarkable as visualized. ABDOMEN and PELVIS: Intraperitoneal space: Unremarkable. No free air. No significant fluid collection. Bones/joints: No acute fracture. No dislocation. Soft tissues: Unremarkable. Vasculature: The vasculature demonstrates diffuse mild atherosclerotic calcification. No abdominal aortic aneurysm. Lymph nodes: Unremarkable. No enlarged lymph nodes. IMPRESSION: No acute intra-abdominal or pelvic abnormality.
[2017-05-27 05:57] VITALS: BP 147/89; PULSE 78; RESP 16; TEMP 98; O2SAT 98
--- NOTE | 2017-05-27 09:29 | CARD ---
APPROVED REPORT EKG Measurement Heart [id number] <Conclusion> Normal sinus rhythm with sinus arrhythmia Normal ECG
--- NOTE | 2017-05-27 10:42 | RAD ---
HISTORY: chest pain COMPARISON: Chest radiograph dated 07/10/2016. TECHNIQUE: Chest PA and lateral FINDINGS: LUNGS: No active pulmonary disease. PLEURA: No significant pleural effusion identified. No pneumothorax apparent. CARDIOVASCULAR: Normal. OSSEOUS STRUCTURES: No significant abnormalities. VISUALIZED UPPER ABDOMEN: Normal. OTHER FINDINGS: None. IMPRESSION: No active disease.
== END 2017-05-27 06:08 | disposition home or self-care (01) ==
LOC: H.ER 22:27
DX: R07.89 Other chest pain (principal); E11.65 Type 2 diabetes mellitus with hyperglycemia; I10 Essential (primary) hypertension; Z79.4 Long term (current) use of insulin; Z86.711 Personal history of pulmonary embolism
CPT/HCPCS: 71046; 74177; 80053; 80320; 80324; 80345; 80346; 80349; 80353; 80358; 80361; 83690; 83992; 85025; 85610; 85730; 86850; 86900; 93005; 99283; Q0169; Q9966; Q9967

== ENCOUNTER 2017-07-10 04:50 | Observation (INO) | payer MEDICAID, OTHER ==
[2017-07-10 04:51] VITALS: BMI 29.8
--- NOTE | 2017-07-10 05:27 | ED PDOC ---
HPI: Male Pain <Elva Yoder Y - Last Filed: 07/10/17 06:44> History/Exam Limitations: no limitations Additional Complaint(s): 42 YO M w/ h/o recurrent scrotal abscess for which he was previously hospitalized and seen by urology presents to the ED with scrotal pain. 1 year ago patient had a left sided scrotal abscess currently he has a right sided scrotal abscess. It started four days ago, he was seen by his PCP Dr. Lake who prescribed the patient Augmentin. Patient states it started off as a size of a patrice and new has increased in size and is more painful, and has been discharging fluid containing blood, which he has been noticing on his underwear. PAtient rates the pain at a 8/10 and states it radiates down his leg. Denies any fever, chills, vomiting. PMH: HTN, DM2, Barrets esophagus, Sarcoidosis PSH: Abscess drainage, Appendectomy, Left global eye surgery Allergy: Reglan, Zofran SH: Denies alcohol, IVDU, and illicit drug use. Admits to smoking 2 cig a day. Works for [employer] PMD: Jaya <Caleb Dai - Last Filed: 07/10/17 07:38> Time Seen by Provider: 07/10/17 04:54 Chief Complaint (Nursing): Male Genitourinary Past Medical History Vital Signs: Last Vital Signs Temp 97.6 F 07/10/17 05:04 Pulse 88 07/10/17 05:04 Resp 16 07/10/17 05:04 BP 156/95 H 07/10/17 05:04 Pulse Ox 100 07/10/17 05:49 <Elva Yoder Y - Last Filed: 07/10/17 06:44> Vital Signs: Last Vital Signs Temp 97.6 F 07/10/17 05:04 Pulse 88 07/10/17 05:04 Resp 16 07/10/17 05:04 BP 156/95 H 07/10/17 05:04 Pulse Ox 100 07/10/17 05:04 - Medical History PMH: Bronchitis, Diabetes (IDDM), HTN, Pneumonia, Pulmonary Embolism Denies: HIV, Chronic Kidney Disease - Surgical History Surgical History: Appendectomy, Hernia Repair - Family History Family History: States: Unknown Family Hx - Social History Current smoker - smoking cessation education provided: Yes - Immunization History Hx Tetanus Toxoid Vaccination: Yes Hx Influenza Vaccination: Yes Hx Pneumococcal Vaccination: Yes <Caleb Dai - Last Filed: 07/10/17 07:38> - Home Medications Home Medications: Ambulatory Orders Medication Instructions Recorded Lisinopril [Zestril] 20 mg PO DAILY 06/12/16 MetFORMIN [glucoPHAGE] 1,000 mg PO BID #60 tab 05/27/17 Amoxicillin/Clavulanate [Augmentin 1 tab PO BID #14 tab 07/02/17 875 MG-125 MG] - Allergies Allergies/Adverse Reactions: Allergies Allergy/AdvReac Type Severity Reaction Status Date / Time metoclopramide HCl Allergy RASH Verified 07/10/17 05:04 [From Reglan] ondansetron HCl Allergy RASH Verified 07/10/17 05:04 [From Zofran (as hydrochloride)] onion AdvReac VOMITING Verified 07/10/17 05:04 Review of Systems ROS Statement: Except As Marked, All Systems Reviewed And Found Negative <Caleb Dai - Last Filed: 07/10/17 07:38> Physical Exam - Physical Exam Appears: Positive for: No Acute Distress Head Exam: Positive for: NORMAL INSPECTION Skin: Positive for: Normal Color Eye Exam: Positive for: Other (left eye prosthetic) Cardiovascular/Chest: Positive for: Regular Rate, Rhythm Respiratory: Positive for: Normal Breath Sounds Gastrointestinal/Abdominal: Positive for: Normal Exam, Bowel Sounds, Soft. Negative for: Tenderness Male Genital Exam: Positive for: other (Swelling noted at lower portion of scrotum close to perinium 1.5cm x 1.5 cm. No active draining currently. Tender to palpate) Neurologic/Psych: Positive for: Alert, yard clerk II-XII, Oriented <Caleb Dai - Last Filed: 07/10/17 07:38> - Laboratory Results Result Diagrams: 07/10/17 06:43 - ECG O2 Sat by Pulse Oximetry: 100 <Caleb Dai - Last Filed: 07/10/17 07:38> Medical Decision Making Medical Decision Makin Patient will be signed out to Dr. Saha pending CT, labs, and admission. <Elva Yoder Y - Last Filed: 07/10/17 06:44> Disposition - Patient ED Disposition Is Patient to be Admitted: Transfer of Care - Disposition Disposition Time: 07:00 Patient Signed Over To: Jeffrey Saha <Elva Yoder - Last Filed: 07/10/17 06:44> - Patient ED Disposition Is Patient to be Admitted: Transfer of Care <Caleb Dai - Last Filed: 07/10/17 07:38> - Clinical Impression Clinical Impression: Groin pain - Disposition Condition: FAIR Forms: [facility] (Hungarian)
[2017-07-10] MEDS ORDERED: Piperacillin/Tazobact 4.5 GM in Sodium Chloride 0.9% 100 ML IVPB STA (05:29)
[2017-07-10 06:51] LABS: BASO % 0.5 % (0.0-2.0); EOS # 0.7 K/uL (0.0-0.7); EOS % 11.3 % (0.0-4.0); HEMOGLOBIN 14.8 g/dL (12.0-18.0); LYMPH # 1.4 K/uL (1.0-4.3); LYMPH % 22.6 % (20.0-40.0); MEAN CELL VOLUME 92.7 fl (80.0-94.0); MEAN CORPUSCULAR HEMOGLOBIN 32.1 pg (27.0-31.0); MEAN CORPUSCULAR HGB CONC 34.7 g/dL (33.0-37.0); MEAN PLATELET VOLUME 7.5 fl (7.2-11.7); MONO # 0.8 K/uL (0.0-0.8); MONO % 13.6 % (0.0-10.0); NEUT # 3.1 K/uL (1.8-7.0); RBC 4.59 Mil/uL (4.40-5.90); RED CELL DISTRIBUTION WIDTH 12.3 % (11.5-14.5)
[2017-07-10 06:58] LABS: ALB/GLOB RATIO 1.1 (1.0-2.1); ALBUMIN 4.1 g/dL (3.5-5.0); ALT/SGPT 43 U/L (21-72); AST/SGOT 28 U/L (17-59); BLOOD UREA NITROGEN 10 mg/dl (9-20); CALCIUM 9.6 mg/dL (8.4-10.2); GFR AFRICAN-AMERICAN > 60; GFR NON-AFRICAN AMERICAN > 60
[2017-07-10] MEDS ORDERED: Sodium Chloride 0.9% 100 ML ONE (07:50)
[2017-07-10] MEDS ORDERED: Iohexol 300 100 ML IJ ONE (07:50)
--- NOTE | 2017-07-10 09:16 | CT ---
PROCEDURE: CT Abdomen and Pelvis with contrast HISTORY: reccurent abscess COMPARISON: None. TECHNIQUE: Following the intravenous administration of iodinated contrast material, a CT examination of the abdomen and pelvis performed from the domes of the diaphragms to the symphysis pubis with reformatted datasets provided not only axial but also sagittal and coronal planes. Oral contrast was not administered as per referring physician request. Contrast dose: Omnipaque 300, 95 cc Radiation dose: Total exam DLP = 883.89 mGy-cm. This CT exam was performed using one or more of the following dose reduction techniques: Automated exposure control, adjustment of the mA and/or kV according to patient size, and/or use of iterative reconstruction technique. FINDINGS: LOWER THORAX: Unremarkable. LIVER: Likely limited diffuse fatty infiltration liver. Exam somewhat limited by late arterial phase of enhancement and very limited venous enhancement GALLBLADDER AND BILE DUCTS: Unremarkable. PANCREAS: Unremarkable. No gross lesion or ductal dilatation. SPLEEN: Unremarkable. ADRENALS: Unremarkable. No mass. KIDNEYS AND URETERS: Unremarkable. No hydronephrosis. No solid mass. VASCULATURE: Unremarkable. No aortic aneurysm. BOWEL: Unremarkable. No obstruction. No gross mural thickening. APPENDIX: Appendix not clearly identified. No CT evidence to suggest appendicitis nevertheless. Apparently there is a prior history of appendectomy in the past. PERITONEUM: Unremarkable. No free fluid. No free air. LYMPH NODES: Unremarkable. No enlarged lymph nodes. BLADDER: Unremarkable. REPRODUCTIVE: Unremarkable. BONES: No acute fracture. OTHER FINDINGS: None. IMPRESSION: No acute abdomen or pelvis findings with no suspicious interval changes appreciated as compared to prior abdomen and pelvis CT examination 05/27/2017. Limited diffuse fatty infiltration of the liver is suspected.
--- NOTE | 2017-07-10 09:24 | ED PDOC ---
- Laboratory Results Result Diagrams: 07/11/17 06:00 07/11/17 06:00 - ECG O2 Sat by Pulse Oximetry: 100 (RA) Pulse Ox Interpretation: Normal Medical Decision Making Medical Decision Making: Time: 0700 Patient signed out to me pending CT results, labs and reevaluation. Time: 0915 CT Head FINDINGS: LOWER THORAX: Unremarkable. LIVER: Likely limited diffuse fatty infiltration liver. Exam somewhat limited by late arterial phase of enhancement and very limited venous enhancement GALLBLADDER AND BILE DUCTS: Unremarkable. PANCREAS: Unremarkable. No gross lesion or ductal dilatation. SPLEEN: Unremarkable. ADRENALS: Unremarkable. No mass. KIDNEYS AND URETERS: Unremarkable. No hydronephrosis. No solid mass. VASCULATURE: Unremarkable. No aortic aneurysm. BOWEL: Unremarkable. No obstruction. No gross mural thickening. APPENDIX: Appendix not clearly identified. No CT evidence to suggest appendicitis nevertheless. Apparently there is a prior history of appendectomy in the past. PERITONEUM: Unremarkable. No free fluid. No free air. LYMPH NODES: Unremarkable. No enlarged lymph nodes. BLADDER: Unremarkable. REPRODUCTIVE: Unremarkable. BONES: No acute fracture. OTHER FINDINGS: None. IMPRESSION: No acute abdomen or pelvis findings with no suspicious interval changes appreciated as compared to prior abdomen and pelvis CT examination 05/27/2017. Limited diffuse fatty infiltration of the liver is suspected. Time: [address] Lake, patient's PCP who is requesting patient to be admitted for scrotal cellulitis and consult Dr. Cervantes for urology. Scribe Attestation: Documented by Demetria Olmos, acting as a scribe for Jeffrey Saha MD. Provider Scribe Attestation: All medical record entries made by the Scribe were at my direction and personally dictated by me. I have reviewed the chart and agree that the record accurately reflects my personal performance of the history, physical exam, medical decision making, and the department course for this patient. I have also personally directed, reviewed, and agree with the discharge instructions and disposition. Disposition Discussed With : [place] Lake Doctor Will See Patient In The: ED Counseled Patient/Family Regarding: Studies Performed, Diagnosis (j) - Clinical Impression Clinical Impression: Groin pain, Cellulitis of scrotum - POA Present On Arrival: Poor Glycemic Control - Disposition Disposition: Hospitalized as Observation Patient Disposition Time: 09:41 Condition: STABLE
[2017-07-10] MEDS ORDERED: Povidone Iodine Topical 10% Sol ONE (16:21)
--- NOTE | 2017-07-10 17:01 | CP.PCM.PN ---
Subjective - Date & Time of Evaluation Date of Evaluation: 07/10/17 Time of Evaluation: 16:54 - Subjective Subjective: 42 year old male who presented with induration in lower scrotum pt says it drained pus 2 days ago,pt had similar empisode last year which resolved with antibiotics. Pt is diabetic. PE shows superfical induration in scrotal skin which is not fluctuant, erythematus and no puss can be expressed.no evidence of gangrene or intra scrotal process. A superficial skin infection no evidence of abcess. Suggest Warm soaks ,antibiotics if the lesion becomes fluctuant please notify me Thanks Helen Objective - Vital Signs/Intake and Output Vital Signs (last 24 hours): Temp Pulse Resp BP Pulse Ox 98.2 F 73 19 133/79 97 07/10/17 16:29 07/10/17 16:29 07/10/17 16:29 07/10/17 16:29 07/10/17 16:29 - Medications Medications: Current Medications Piperacillin Sod/Tazobactam (Sod 3.375 gm/ Sodium Chloride) 100 mls @ 100 mls/ hr IVPB Q8 JEROD PRN Reason: Protocol Ibuprofen (Motrin Tab) 800 mg PO Q8 PRN PRN Reason: Pain, moderate (4-7) Last Admin: 07/10/17 11:27 Dose: 800 mg Insulin Human Regular (Humulin R) 0 units SC ACCU-CHECK JEROD PRN Reason: Protocol Lisinopril (Zestril) 20 mg PO DAILY JEROD Metformin HCl (Glucophage) 1,000 mg PO BID JEROD Sitagliptin Phosphate (Januvia) 100 mg PO DAILY JEROD Tramadol HCl (Ultram) 50 mg PO Q6 PRN PRN Reason: Pain, severe (8-10) - Labs Labs: 07/10/17 06:43 07/10/17 06:43
[2017-07-10] MEDS: Piperacillin/Tazobact 3.375 GM in Sodium Chloride 0.9% 100 ML IVPB SCH (18:09)
[2017-07-10] MEDS: Insulin Regular 100 units/ml SC SCH ×2 (18:12→22:36)
--- NOTE | 2017-07-10 23:40 | CP.PCM.HP ---
History of Present Illness - History of Present Illness History of Present Illness: This is is a 42 y/o male with hx of uncontrolled DM 2 and recurrent abscesses was admitted for worsening of painful lump at the right side of scrotal sac. Past Patient History - Infectious Disease Hx of Infectious Diseases: None - Past Medical History & Family History Past Medical History?: Yes - Past Social History Smoking Status: Light Smoker < 10 Cigarettes Daily - CARDIAC Hx Cardiac Disorders: Yes Hx Hypertension: Yes - PULMONARY Hx Bronchitis: Yes Hx Pneumonia: Yes Hx Pulmonary Embolism: Yes - NEUROLOGICAL Hx Dizziness: Yes Other/Comment: Hx Concussion/head trauma - HEENT Hx HEENT Problems: Yes - RENAL Hx Chronic Kidney Disease: No - ENDOCRINE/METABOLIC Hx Endocrine Disorders: Yes Hx Diabetes Mellitus Type 2: Yes - HEMATOLOGICAL/ONCOLOGICAL Hx Blood Disorders: No - INTEGUMENTARY Hx Dermatological Problems: Yes (Cellulitis/ Abcesses) Hx Cellulitis: Yes (scrotum) - MUSCULOSKELETAL/RHEUMATOLOGICAL Hx Musculoskeletal Disorders: Yes Hx Falls: No Other/Comment: Hx Left Torn rotator cuff - GASTROINTESTINAL Hx Gastrointestinal Disorders: No - GENITOURINARY/GYNECOLOGICAL Hx Genitourinary Disorders: No - PSYCHIATRIC Hx Psychophysiologic Disorder: No Hx Emotional Abuse: No Hx Physical Abuse: No Hx Sexual Abuse: No Hx Substance Use: No - SURGICAL HISTORY Hx Surgeries: No Hx Appendectomy: Yes - ANESTHESIA Hx Anesthesia: Yes Hx Anesthesia Reactions: No Hx Malignant Hyperthermia: No Has any member of the family had a problem w/ anesthesia?: No Meds Allergies/Adverse Reactions: Allergies Allergy/AdvReac Type Severity Reaction Status Date / Time metoclopramide HCl Allergy RASH Verified 07/10/17 05:04 [From Reglan] ondansetron HCl Allergy RASH Verified 07/10/17 05:04 [From Zofran (as hydrochloride)] onion AdvReac VOMITING Verified 07/10/17 05:04 Results - Vital Signs Recent Vital Signs: Last Vital Signs Temp 98.2 F 07/10/17 16:29 Pulse 73 07/10/17 16:29 Resp 19 07/10/17 16:29 BP 133/79 07/10/17 16:29 Pulse Ox 97 07/10/17 16:29 - Labs Result Diagrams: 07/10/17 06:43 07/10/17 06:43 Labs: Laboratory Results - last 24 hr 07/10/17 07/10/17 07/10/17 06:43 06:43 15:28 WBC 6.0 RBC 4.59 Hgb 14.8 Hct 42.6 MCV 92.7 MCH 32.1 H MCHC 34.7 RDW 12.3 Plt Count 193 MPV 7.5 Neut % (Auto) 52.0 Lymph % (Auto) 22.6 Sac % (Auto) 13.6 H Eos % (Auto) 11.3 H Baso % (Auto) 0.5 Neut # (Auto) 3.1 Lymph # (Auto) 1.4 Sac # (Auto) 0.8 Eos # (Auto) 0.7 Baso # (Auto) 0.0 Sodium 142 Potassium 3.8 Chloride 101 Carbon Dioxide 25 Anion Gap 20 BUN 10 Creatinine 0.5 L Est GFR ( Amer) > 60 Est GFR (Non-Af Amer) > 60 POC Glucose (mg/dL) 244 H Random Glucose 237 H Calcium 9.6 Total Bilirubin 0.4 AST 28 ALT 43 Alkaline Phosphatase 92 Total Protein 7.8 Albumin 4.1 Globulin 3.7 Albumin/Globulin Ratio 1.1 07/10/17 21:17 WBC RBC Hgb Hct MCV MCH MCHC RDW Plt Count MPV Neut % (Auto) Lymph % (Auto) Sac % (Auto) Eos % (Auto) Baso % (Auto) Neut # (Auto) Lymph # (Auto) Sac # (Auto) Eos # (Auto) Baso # (Auto) Sodium Potassium Chloride Carbon Dioxide Anion Gap BUN Creatinine Est GFR ( Amer) Est GFR (Non-Af Amer) POC Glucose (mg/dL) 184 H Random Glucose Calcium Total Bilirubin AST ALT Alkaline Phosphatase Total Protein Albumin Globulin Albumin/Globulin Ratio
[2017-07-10 23:49] VITALS: RESP 20
[2017-07-11] MEDS: Piperacillin/Tazobact 3.375 GM in Sodium Chloride 0.9% 100 ML IVPB SCH ×2 (00:39→08:22)
[2017-07-11 06:42] LABS: HEMOGLOBIN 13.8 g/dL (12.0-18.0); MEAN CELL VOLUME 91.9 fl (80.0-94.0); MEAN CORPUSCULAR HEMOGLOBIN 31.9 pg (27.0-31.0); MEAN CORPUSCULAR HGB CONC 34.7 g/dL (33.0-37.0); RBC 4.33 Mil/uL (4.40-5.90); RED CELL DISTRIBUTION WIDTH 12.3 % (11.5-14.5); WHITE BLOOD COUNT 5.5 K/uL (4.8-10.8)
[2017-07-11] MEDS: Insulin Regular 100 units/ml SC SCH ×2 (06:47→12:25)
[2017-07-11 06:54] LABS: LDL CHOLESTEROL 95 mg/dL (0-129)
[2017-07-11 06:57] LABS: ALB/GLOB RATIO 1.1 (1.0-2.1); ALBUMIN 3.5 g/dL (3.5-5.0); ALT/SGPT 45 U/L (21-72); AST/SGOT 19 U/L (17-59); BLOOD UREA NITROGEN 14 mg/dl (9-20); CALCIUM 9.2 mg/dL (8.4-10.2); GFR AFRICAN-AMERICAN > 60; GFR NON-AFRICAN AMERICAN > 60; HDL CHOLESTEROL 30 MG/DL (30-70)
[2017-07-11 08:02] VITALS: BP 132/71; PULSE 78; TEMP 98.3
--- NOTE | 2017-07-11 12:24 | CP.PCM.DIS ---
<Micheal Steele - Last Filed: 07/11/17 13:31> Provider - Provider Date of Admission: 07/10/17 09:41 Attending physician: Michoacano Lake MD Consults: Urology Time Spent in preparation of Discharge (in minutes): 30 Diagnosis - Discharge Diagnosis (1) Cellulitis of scrotum Status: Acute Comment: Stable. To C/w Abx as outpatient Hospital Course - Lab Results Lab Results: Micro Results 07/10/17 06:30 Blood Blood Culture - Preliminary NO GROWTH AFTER 24 HOURS Most Recent Lab Values WBC 5.5 K/uL (4.8-10.8) 07/11/17 06:00 RBC 4.33 Mil/uL (4.40-5.90) L 07/11/17 06:00 Hgb 13.8 g/dL (12.0-18.0) 07/11/17 06:00 Hct 39.8 % (35.0-51.0) 07/11/17 06:00 MCV 91.9 fl (80.0-94.0) 07/11/17 06:00 MCH 31.9 pg (27.0-31.0) H 07/11/17 06:00 MCHC 34.7 g/dL (33.0-37.0) 07/11/17 06:00 RDW 12.3 % (11.5-14.5) 07/11/17 06:00 Plt Count 192 K/uL (130-400) 07/11/17 06:00 MPV 7.5 fl (7.2-11.7) 07/10/17 06:43 Neut % (Auto) 52.0 % (50.0-75.0) 07/10/17 06:43 Lymph % (Auto) 22.6 % (20.0-40.0) 07/10/17 06:43 [place] % (Auto) 13.6 % (0.0-10.0) H 07/10/17 06:43 Eos % (Auto) 11.3 % (0.0-4.0) H 07/10/17 06:43 Baso % (Auto) 0.5 % (0.0-2.0) 07/10/17 06:43 Neut # (Auto) 3.1 K/uL (1.8-7.0) 07/10/17 06:43 Lymph # (Auto) 1.4 K/uL (1.0-4.3) 07/10/17 06:43 [place] # (Auto) 0.8 K/uL (0.0-0.8) 07/10/17 06:43 Eos # (Auto) 0.7 K/uL (0.0-0.7) 07/10/17 06:43 Baso # (Auto) 0.0 K/uL (0.0-0.2) 07/10/17 06:43 Sodium 141 mmol/l (132-148) 07/11/17 06:00 Potassium 3.7 MMOL/L (3.6-5.0) 07/11/17 06:00 Chloride 102 mmol/L (98-107) 07/11/17 06:00 Carbon Dioxide 26 mmol/L (22-30) 07/11/17 06:00 Anion Gap 17 (10-20) 07/11/17 06:00 BUN 14 mg/dl (9-20) 07/11/17 06:00 Creatinine 0.5 mg/dl (0.8-1.5) L 07/11/17 06:00 Est GFR ( Amer) > 60 07/11/17 06:00 Est GFR (Non-Af Amer) > 60 07/11/17 06:00 POC Glucose (mg/dL) 155 mg/dL (65-110) H 07/11/17 11:14 Random Glucose 135 mg/dL (75-110) H 07/11/17 06:00 Calcium 9.2 mg/dL (8.4-10.2) 07/11/17 06:00 Total Bilirubin 0.4 mg/dl (0.2-1.3) 07/11/17 06:00 AST 19 U/L (17-59) 07/11/17 06:00 ALT 45 U/L (21-72) 07/11/17 06:00 Alkaline Phosphatase 69 U/L (38-126) 07/11/17 06:00 Total Protein 6.7 G/DL (6.3-8.2) 07/11/17 06:00 Albumin 3.5 g/dL (3.5-5.0) 07/11/17 06:00 Globulin 3.2 gm/dL (2.2-3.9) 07/11/17 06:00 Albumin/Globulin Ratio 1.1 (1.0-2.1) 07/11/17 06:00 Triglycerides 153 mg/DL (0-149) H D 07/11/17 06:00 Cholesterol 158 mg/dL (0-199) 07/11/17 06:00 LDL Cholesterol Direct 95 mg/dL (0-129) 07/11/17 06:00 HDL Cholesterol 30 MG/DL (30-70) 07/11/17 06:00 TSH 3rd Generation 0.34 mIU/ML (0.46-4.68) L 07/11/17 06:00 - Hospital Course Hospital Course: 42 y/o M with Hx of uncontrolled NIDDM was admitted to hosp with scrotal cellulitis and poss abscess. Patient was started on IV abx and Urology was consulted. Patient has been afebrile and having this complains for the past 2 weeks after failing outpatient trial of Augmentin PO. Today patient pain and erythema have improved, he was cleared by Urology of any Sx procedure. No fluctuating collection on PE and patient stable to be DC home on Keflex, NSAIDs to f/u with Dr Lake as outpatient. Advised to return to ED if worsening symptoms or fever. Discharge Exam - Head Exam Head Exam: NORMAL INSPECTION - Eye Exam Eye Exam: EOMI, PERRL - ENT Exam ENT Exam: Mucous Membranes Moist - Respiratory Exam Respiratory Exam: Clear to PA & Lateral, NORMAL BREATHING PATTERN, UNREMARKABLE - Cardiovascular Exam Cardiovascular Exam: REGULAR RHYTHM, +S1, +S2. absent: Gallop - GI/Abdominal Exam GI & Abdominal Exam: Normal Bowel Sounds, Unremarkable. absent: Rebound, Tenderness - Exam Exam: absent: NORMAL INSPECTION (Mild tendeness R/groin and scrotal area. Mild erythema present. No fluid collection), Testicular Tenderness - Neurological Exam Neurological exam: Alert, Oriented x3 - Psychiatric Exam Psychiatric exam: Normal Affect - Skin Skin Exam: Normal Color, Warm Discharge Plan - Discharge Medications Prescriptions: Cephalexin [Keflex] 500 mg PO Q8 #15 capsule SITagliptin [Januvia] 100 mg PO DAILY #30 tab - Follow Up Plan Condition: STABLE Disposition: HOME/ ROUTINE Instructions: Cellulitis (Skin Infection), Adult (DC) Additional Instructions: pt. cleared for discharge to Home today by Rx for meds provided f/u with in 1 week cont. warm soaks, po abx, and instructed pt. to return to ED if fever, chills, worsening pain, drainage Referrals: Felipe Cervantes Jr., MD [Staff Provider] - Michoacano Lake MD [Staff Provider] - <Michoacano Lake - Last Filed: 07/11/17 14:59> Provider - Provider Date of Admission: 07/10/17 09:41 Attending physician: Michoacano Lake MD Hospital Course - Lab Results Lab Results: Micro Results 07/10/17 06:30 Blood Blood Culture - Preliminary NO GROWTH AFTER 24 HOURS Most Recent Lab Values WBC 5.5 K/uL (4.8-10.8) 07/11/17 06:00 RBC 4.33 Mil/uL (4.40-5.90) L 07/11/17 06:00 Hgb 13.8 g/dL (12.0-18.0) 07/11/17 06:00 Hct 39.8 % (35.0-51.0) 07/11/17 06:00 MCV 91.9 fl (80.0-94.0) 07/11/17 06:00 MCH 31.9 pg (27.0-31.0) H 07/11/17 06:00 MCHC 34.7 g/dL (33.0-37.0) 07/11/17 06:00 RDW 12.3 % (11.5-14.5) 07/11/17 06:00 Plt Count 192 K/uL (130-400) 07/11/17 06:00 MPV 7.5 fl (7.2-11.7) 07/10/17 06:43 Neut % (Auto) 52.0 % (50.0-75.0) 07/10/17 06:43 Lymph % (Auto) 22.6 % (20.0-40.0) 07/10/17 06:43 [place] % (Auto) 13.6 % (0.0-10.0) H 07/10/17 06:43 Eos % (Auto) 11.3 % (0.0-4.0) H 07/10/17 06:43 Baso % (Auto) 0.5 % (0.0-2.0) 07/10/17 06:43 Neut # (Auto) 3.1 K/uL (1.8-7.0) 07/10/17 06:43 Lymph # (Auto) 1.4 K/uL (1.0-4.3) 07/10/17 06:43 [place] # (Auto) 0.8 K/uL (0.0-0.8) 07/10/17 06:43 Eos # (Auto) 0.7 K/uL (0.0-0.7) 07/10/17 06:43 Baso # (Auto) 0.0 K/uL (0.0-0.2) 07/10/17 06:43 Sodium 141 mmol/l (132-148) 07/11/17 06:00 Potassium 3.7 MMOL/L (3.6-5.0) 07/11/17 06:00 Chloride 102 mmol/L (98-107) 07/11/17 06:00 Carbon Dioxide 26 mmol/L (22-30) 07/11/17 06:00 Anion Gap 17 (10-20) 07/11/17 06:00 BUN 14 mg/dl (9-20) 07/11/17 06:00 Creatinine 0.5 mg/dl (0.8-1.5) L 07/11/17 06:00 Est GFR ( Amer) > 60 07/11/17 06:00 Est GFR (Non-Af Amer) > 60 07/11/17 06:00 POC Glucose (mg/dL) 155 mg/dL (65-110) H 07/11/17 11:14 Random Glucose 135 mg/dL (75-110) H 07/11/17 06:00 Hemoglobin A1c 9.3 % (4.2-6.5) H 07/11/17 06:00 Calcium 9.2 mg/dL (8.4-10.2) 07/11/17 06:00 Total Bilirubin 0.4 mg/dl (0.2-1.3) 07/11/17 06:00 AST 19 U/L (17-59) 07/11/17 06:00 ALT 45 U/L (21-72) 07/11/17 06:00 Alkaline Phosphatase 69 U/L (38-126) 07/11/17 06:00 Total Protein 6.7 G/DL (6.3-8.2) 07/11/17 06:00 Albumin 3.5 g/dL (3.5-5.0) 07/11/17 06:00 Globulin 3.2 gm/dL (2.2-3.9) 07/11/17 06:00 Albumin/Globulin Ratio 1.1 (1.0-2.1) 07/11/17 06:00 Triglycerides 153 mg/DL (0-149) H D 07/11/17 06:00 Cholesterol 158 mg/dL (0-199) 07/11/17 06:00 LDL Cholesterol Direct 95 mg/dL (0-129) 07/11/17 06:00 HDL Cholesterol 30 MG/DL (30-70) 07/11/17 06:00 TSH 3rd Generation 0.34 mIU/ML (0.46-4.68) L 07/11/17 06:00
[2017-07-11 21:49] VITALS: O2SAT 100
--- NOTE | 2017-07-12 16:27 | CON ---
DATE: 07/10/2017 REASON FOR CONSULTATION: I was asked to see patient at the request of Dr. Vaughn, because of scrotal abscess. HISTORY OF PRESENT ILLNESS: The patient presented in the [facility] with scrotal pain and said he had a lesion at the base of the scrotum, which had drained spontaneously at home. He gives a history of having similar episode last year where an abscess was noted on the left. The patient denies fever at home. He is known diabetic. He says he is prone to these type of abscesses. REVIEW OF SYSTEMS: PULMONARY SYSTEMS: The patient has no shortness of breath or wheezing. He says he is breathing normally. CARDIAC: The patient has no history of chest pain, palpitations or congestive heart failure. GASTROINTESTINAL: The patient is a known diabetic. He has been well controlled. He denies any change in bowel habits, constipation and/or bleeding per rectum. GENITOURINARY: The patient has no history of voiding problems. He has no history of dysuria, hematuria or urinary frequency. He has no history of testicular swelling of pain. He does have a history of scrotal abscess in the past, which resolved with antibiotics in the local care. He is also giving a history of new abscess, which began 2 to 3 days ago and has drains spontaneously at home according to the patient. SOCIAL HISTORY: The patient has no family in the area,. He works for [employer]. He does not do drugs and says he is nonsmoker and a social drinker. PSYCHIATRIC HISTORY: The patient has no history of suicidal ideations, depression, jose antonio or change in mental state. He also denies doing drugs. PHYSICAL EXAMINATION VITAL SIGNS: Vital signs are within normal limits. Blood pressure is 120/80 and the patient is afebrile with temperature is 98.6 and pulse is 60. GENERAL: The patient is awake, alert, and oriented x3. He answers questions appropriately. HEENT: The head, ears, eyes, nose, and throat are within normal limits. NECK: There is no bruits or masses in the neck. There are no evidence of lymphadenopathy. CHEST: There is good breath sounds bilaterally. The lungs are clear and inflated bilaterally. HEART: There is no cardiomegaly. There is no murmur. Cardiac; the patient is normal. ABDOMEN: The abdomen is soft and nontender. There are no masses or organomegaly. Kidneys are not palpably enlarged. There is normal bowel sounds. No abdominal masses. No evidence of previous surgery. There are no inguinal hernias. GENITOURINARY: The testicular, epididymis and cord are normal. There is a small area of less than 1 cm induration at the base of the right scrotum. Does not appeared to be fluctuant. There is no evidence of draining sinus. There is no fixation of the skin to the testicle. There are no hernias. The left satya-scrotum, there is no evidence of prior abscess or draining site. RECTAL: Examination shows a +2 prostate, which is not indurated. EXTREMITIES: There are good movement in all four extremities. There is no evidence of orthopedic deformity. The pulses are good bilaterally and palpable in both the groin, the popliteal fossa and the anterior tibial area. On the upper extremities, there are normal pulses bilaterally and there is full movement of both extremities. BREASTS: There is no evidence of gynecomastia. There are no palpable breast masses. IMPRESSION AND PLAN: My impression is that the patient has a indurated area in the right satya-scrotum, which can be treated with oral antibiotics and local care, suggest warm soaks four times a day. The patient should be reevaluated in 2 to 3 days to see if the lesion is resolving, if it becomes fluctuant again, incision and drainage of the area is recommend. I have communicated these recommendations to Dr. Vaughn, the attending physician and to the patient. Felipe Cervantes MD
== END 2017-07-11 13:44 | disposition home or self-care (01) ==
LOC: H.ER 04:50 → H.ERHOLD 09:41 → INTOOBSV 09:41 → H.MEDSURG1 11:40 → UNDODISIN 17:17 → H.MEDSURG1 23:13
PROVIDERS: ADMIT Family Medicine; ATTEND Family Medicine
DX: N49.2 Inflammatory disorders of scrotum (principal); L08.89 Other specified local infections of the skin and subcutaneous tissue; E11.9 Type 2 diabetes mellitus without complications; I10 Essential (primary) hypertension; D86.9 Sarcoidosis, unspecified; F17.210 Nicotine dependence, cigarettes, uncomplicated; Z79.4 Long term (current) use of insulin; Z86.711 Personal history of pulmonary embolism; Z87.01 Personal history of pneumonia (recurrent)
CPT/HCPCS: 36415; 74177; 80053; 80061; 82948; 83036; 84443; 85025; 85027; 87040; 96372; 99285; G0378; J1885; J2543; Q9967